=== PATIENT | male | born 1975 | race Caucasian/White ===

== ENCOUNTER 2018-03-22 08:53 | Day surgery (SDC) | payer OTHER ==
[~2018-03-22] VITALS: Ht 188 cm; Wt 87.6 kg
[2018-03-22] MEDS ORDERED: OMEPRAZOLE MAGN20 MG PO (09:15)
== END 2018-03-22 13:38 | disposition home or self-care (01) ==
LOC: ORSCSDS 08:53
PROVIDERS: Orthopaedic Surgery
PROC: 0SBC4ZZ Excision of Right Knee Joint, Percutaneous Endoscopic Approach (ICD-10-PCS; principal; 2018-03-22 10:00)
DX: S83.241A Other tear of medial meniscus, current injury, right knee, initial encounter (principal); M65.9 Synovitis and tenosynovitis, unspecified; K21.9 Gastro-esophageal reflux disease without esophagitis; Z79.899 Other long term (current) drug therapy
CPT/HCPCS: J0171; J0690; J1100; J1885; J2250; J2405; J2765; J3010; J3301; J7120

== ENCOUNTER 2019-01-01 08:06 | Day surgery (SDC) | payer OTHER ==
[~2019-01-01] VITALS: Ht 188 cm; Wt 85.3 kg
[~2019-01-01 08:06] MED LIST: OMEPRAZOLE MAGN20 MG PO
--- NOTE | 2019-01-01 08:41 | NUR ---
Ambulatory in Day Surgery. Patient states colon prep results clear. History, Chart, Medications and Allergies reviewed before start of procedure. Lungs clear T/O to Auscultation. Patient confirms NPO status and agrees with scheduled surgery. Pre-Op teaching done. Pt verbalizes understanding. Patient States Post-Procedure ride home has been arranged.
--- NOTE | 2019-01-01 09:05 | NUR ---
01/01/19 0905 Tunde Benítez PATIENT DETERMINED TO BE ASA APPROPRIATE FOR PROPOFOL SEDATION PRIOR TO START OF PROCEDURE BY . 3-LEAD EKG REVIEWED WITH PHYSICIAN PRIOR TO START OF PROCEDURE.PATIENT CONFIRMS NPO STATUS AND AGREES WITH SCHEDULED PROCEDURE.History, Chart, Medications and Allergies reviewed before start of procedure.MONITOR INTACT WITH CONTINUOUS PULSE OXIMETRY AND INTERMITTENT BP.O2 VIA N/C INTACT THROUGHOUT SEDATION/PROCEDURE.HURRICAINE SPRAY TO OROPHARYX.Bite Block Placed
--- NOTE | 2019-01-01 10:27 | NUR ---
DR WHEELER CAME TO SEE PT, PT WAS RETCHING, SMALL AMOUNT OF PHLEM IN EMESIS BAG, PT STATES DOES FEEL BETTER.
--- NOTE | 2019-01-01 10:49 | NUR ---
PT CONTINUES TO " FEEL SICK" RETCHING IN EMESIS BAG, LESS THAN 50 CC OF WHAT APPEARS TO BE PHLEM, AIR BUBBLES. PHENERGAN GIVEN IV PER ORDER.
--- NOTE | 2019-01-01 12:02 | NUR ---
ASSUMED CARE OF PATIENT. PT STATES HE FEELS REALLY SICK. C/O OF PAIN 5/10 IN ABDFOMEN, DRY HEAVING, WRITHING IN BED. ZOFRAN GIVEN PER ORDER, XRAY ORDERED.
--- NOTE | 2019-01-01 12:36 | NUR ---
pt returned from radiology. CONTINUES TO STATE HE FEELS SO SICK. BELCHING, NO EMESIS. CONT. TO MOVE ABOUT BED STATES CANT GET A COMFORTABLE POSITION. CALL LIGHT AND EMESIS BAG GIVEN. VSS.
--- NOTE | 2019-01-01 13:02 | NUR ---
DR WHEELER CALLED, RADIOLOGY RESULT-XRAY, NO SIGNIFICANT FINDINGS, SUGGESTED PT TAKE WARM FLUIDS FOR THE NEXT COUPLE DAYS AND KEEP FOLLOW UP. PT ANXIOUS, STATES HE NEEDS TO USE BATHROOM AGAIN. PT AGREEING TO TAKE WARM FLUIDS.
--- NOTE | 2019-01-01 13:21 | NUR ---
PT TOLERATED SIPS OF PEPPERMINT TEA, NO NAUSEA OR EMESIS. Discharge instructions reviewed with patient. Patient verbalizes understanding. Copy given to patient to take home. GIRLFRIENCorinne SOLIZ AT BEDSIDE. PT AMBULATED OUT OF DEPARTMENT.
== END 2019-01-01 22:49 | disposition home or self-care (01) ==
LOC: ORSCMMR 08:06 → ORD 09:00 → ORSCMMR 09:00
PROVIDERS: Internal Medicine Gastroenterology
PROC: 0DBE8ZX Excision of Large Intestine, Via Natural or Artificial Opening Endoscopic, Diagnostic (ICD-10-PCS; principal; 2019-01-01 09:00)
PROC: 0DB58ZX Excision of Esophagus, Via Natural or Artificial Opening Endoscopic, Diagnostic (ICD-10-PCS; principal; 2019-01-01 09:00)
PROC: 0DB98ZX Excision of Duodenum, Via Natural or Artificial Opening Endoscopic, Diagnostic (ICD-10-PCS; principal; 2019-01-01 09:00)
PROC: 0DB68ZX Excision of Stomach, Via Natural or Artificial Opening Endoscopic, Diagnostic (ICD-10-PCS; principal; 2019-01-01 09:00)
DX: R19.7 Diarrhea, unspecified (principal); R19.4 Change in bowel habit; R10.13 Epigastric pain; K21.9 Gastro-esophageal reflux disease without esophagitis; K29.80 Duodenitis without bleeding; K20.9 Esophagitis, unspecified; D12.2 Benign neoplasm of ascending colon; K57.30 Diverticulosis of large intestine without perforation or abscess without bleeding; Z79.899 Other long term (current) drug therapy
CPT/HCPCS: 74018; 88305; 88342; J2405; J2550; J7120

== ENCOUNTER 2020-12-08 10:18 | Emergency (ER) | payer OTHER ==
[~2020-12-08] VITALS: Ht 185.4 cm; Wt 90.7 kg
[2020-12-08 11:37] LABS: BASOPHILS ABSOLUTE AUTO 0.12 K/mm3 (0.00-0.23); BASOPHILS PERCENT AUTO 1 % (0-2); EOSINOPHILS PERCENT AUTO 2 % (0-6); Hematocrit 49.4 % (37.0-53.0); Hemoglobin 16.6 g/dL (13.5-17.5); IMMATURE GRAN ABSOLUTE AUTO 0.04 K/mm3 (0.00-0.10); IMMATURE GRAN PERCENT AUTO 0 % (0-1); LYMPHOCYTES ABSOLUTE AUTO 1.66 K/mm3 (0.84-5.20); LYMPHOCYTES PERCENT AUTO 13 % (21-46); MONOCYTES ABSOLUTE AUTO 0.85 K/mm3 (0.16-1.47); MONOCYTES PERCENT AUTO 7 % (4-13); Mean Corpuscular HGB 30.5 pg (26.0-34.0); Mean Corpuscular HGB Conc 33.6 g/dL (31.5-36.5); Mean Corpuscular Volume 91 fL (80-100); Mean Platelet Volume 10.3 fL (9.1-12.4); NEUTROPHILS ABSOLUTE AUTO 9.93 K/mm3 (1.96-9.15); NEUTROPHILS PERCENT AUTO 78 % (41-73); Platelet Count 400 K/mm3 (150-400); RDW Standard Deviation 40.1 fL (35.1-46.3); Red Blood Cell Count 5.45 M/mm3 (4.30-5.90)
[2020-12-08 11:56] LABS: Alanine Aminotransfer (ALT/SGP 41 U/L (12-78); Albumin, Blood 4.3 g/dL (3.4-5.0); Albumin/Globulin Ratio 1.2 (0.8-1.8); Alk Phos 172 U/L (50-136); Anion Gap 8 mmol/L (6-16); Aspartate Aminotrans (AST/SGOT 27 U/L (12-37); Bilirubin, Total 0.6 mg/dL (0.1-1.0); Blood Urea Nitrogen 12 mg/dL (8-24); Bun/Creatinine Ratio 14.9 (12.0-20.0); CO2, Blood 27 mmol/L (21-32); Calcium, Blood 9.6 mg/dL (8.5-10.1); Chloride, Blood 105 mmol/L (98-108); Creatinine, Blood 0.81 mg/dL (0.60-1.20); Globulin, Blood 3.5 g/dL (2.2-4.0); Glomerular Filtration Rate >60 (60-); Glucose, Blood 177 mg/dL (70-99); Potassium, Blood 4.1 mmol/L (3.5-5.5); Sodium, Blood 140 mmol/L (136-145); Total Protein, Blood 7.8 g/dL (6.4-8.2)
[2020-12-08 12:28] LABS: Source, Urine Clean Catch
[2020-12-08 12:50] LABS: Appearance, Urine Clear (Clear); Bilirubin, Urine Neg (Neg); Blood, Urine Neg (Neg); Color, Urine Yellow (P-Yellow); Glucose Qualitative, Urine Neg (Neg); Ketones, Urine 1+ (Neg); Leukocyte Esterase, Urine 1+ (Neg); Nitrite, Urine Neg (Neg); Protein, Urine 1+ (Neg); Urobilinogen, Urine NORM (Normal)
[2020-12-08 13:15] LABS: Red Blood Cells, Urine 0-2 /hpf (0-2); White Blood Cells, Urine 0-2 /hpf (0-5)
[2020-12-08 13:16] LABS: Bacteria Few /hpf; Squamous Epithelial Cells Rare /hpf (Few)
[2020-12-08] MEDS ORDERED: PROM25 PO (13:51)
[2020-12-08] MEDS ORDERED: DICY20 PO (13:51)
== END 2020-12-08 14:01 | disposition home or self-care (01) ==
LOC: ER 10:18
PROVIDERS: Emergency Medicine
DX: R10.10 Upper abdominal pain, unspecified (principal); R11.2 Nausea with vomiting, unspecified; Z87.891 Personal history of nicotine dependence; Z79.899 Other long term (current) drug therapy
CPT/HCPCS: 80053; 81001; 83690; 84484; 85025; 87086; 93005; 93010; 96361; 96374; 96375; 96376; 99284-25; A9270; J1200; J1630; J1885; J2405; J2550; J7120

== ENCOUNTER 2021-01-07 08:48 | Day surgery (SDC) | payer OTHER ==
[~2021-01-07] VITALS: Ht 185.4 cm; Wt 88.7 kg
[~2021-01-07 08:48] MED LIST changes: +DICY20 PO; +PROM25 PO
[2021-01-07] MEDS ORDERED: PANTOPRAZOLE SO40 M2 PO (09:43)
[2021-01-07] MEDS ORDERED: CELEBREX200 MG PO (09:43)
--- NOTE | 2021-01-07 12:06 | NUR ---
01/07/21 1206 Luba Nagy TRANSEFERED CARE TO [facility].KATELYN DANIEL.
== END 2021-01-07 12:39 | disposition home or self-care (01) ==
LOC: ORSCSDS 08:48
PROVIDERS: Orthopaedic Surgery
PROC: 0SBD4ZZ Excision of Left Knee Joint, Percutaneous Endoscopic Approach (ICD-10-PCS; principal; 2021-01-07 10:00)
DX: S83.242A Other tear of medial meniscus, current injury, left knee, initial encounter (principal); M67.52 Plica syndrome, left knee; Z87.891 Personal history of nicotine dependence; Z79.899 Other long term (current) drug therapy; K21.9 Gastro-esophageal reflux disease without esophagitis
CPT/HCPCS: J0171; J0690; J1100; J1885; J2250; J2405; J2704; J3010; J7120

== ENCOUNTER 2021-12-02 08:49 | Day surgery (SDC) | payer OTHER ==
[~2021-12-02] VITALS: Ht 185.4 cm; Wt 93.4 kg
[~2021-12-02 08:49] MED LIST changes: +CELEBREX200 MG PO; +PANTOPRAZOLE SO40 M2 PO
[2021-12-02] MEDS ORDERED: ZYRTEC10 M2 PO (09:50)
[2021-12-02] MEDS ORDERED: Voltaren100 GM TOP (09:50)
--- NOTE | 2021-12-02 12:33 | NUR ---
12/02/21 1233 RUTHANN RUSH PT AMBULATED TO RESTROOM VOIDED AND BM/ NASEA IMPROVED ON DC DENIES PAIN
== END 2021-12-02 12:31 | disposition home or self-care (01) ==
LOC: ORSCSDS 08:49
PROVIDERS: Orthopaedic Surgery
PROC: 0SBC4ZZ Excision of Right Knee Joint, Percutaneous Endoscopic Approach (ICD-10-PCS; principal; 2021-12-02 10:00)
DX: S83.241A Other tear of medial meniscus, current injury, right knee, initial encounter (principal); M67.51 Plica syndrome, right knee; K21.9 Gastro-esophageal reflux disease without esophagitis; Z87.891 Personal history of nicotine dependence; F41.8 Other specified anxiety disorders; Z79.899 Other long term (current) drug therapy
CPT/HCPCS: 88304; J0171; J0690; J1100; J1885; J2250; J2405; J2704; J3010; J7120